=== PATIENT | female | born 2000 | race Caucasian/White ===

== ENCOUNTER 2020-07-25 09:43 | Emergency (ER) | payer OTHER, SELFPAY ==
--- NOTE | ~2020-07-25 | XR_ITS ---
XR foot LT min 3V DATE: 07/25/2020 10:23 INDICATION: Pain and swelling laterally. No known injury. TECHNIQUE: 4 views COMPARISON: None FINDINGS: No fracture, dislocation, periosteal reaction or bone destruction, erosive change or other significant bony or soft tissue abnormality is detected. IMPRESSION: Negative Reviewed, dictated and finalized at location A. [place] [employer]PARTMENT MANAGER IMPRESSION: Negative
[2020-07-25 09:45] VITALS: BP 144/74; PULSE 96; RESP 18; TEMP 36.1; O2SAT 100
--- NOTE | 2020-07-25 10:13 | ED.LOWEXIN ---
HPI - Extremity Injury (Lower) General Chief Complaint: Extremity Injury, Lower Stated Complaint: Left Foot Injury Time Seen by Provider: 07/25/20 09:56 Source: RN notes reviewed History of Present Illness HPI Narrative: Patient presents to emergency department from home for left foot pain. Patient states symptoms been going for the past 1 week states the pain began after she got home from work approximately a week ago the pain is located over the left lateral foot and is worse with standing on the foot she denies any known direct trauma or injury states that she has been taking ibuprofen for the pain with no relief denies any fevers or chills numbness or tingling or any other symptoms Related Data Allergies Allergy/AdvReac Type Severity Reaction Status Date / Time codeine AdvReac Swelling Verified 07/25/20 09:48 Review of Systems Review of Systems: Narrative: Gen.: Denies fevers or chills Musculoskeletal: See HPI Neuro: Denies numbness, tingling, weakness Skin: Denies rash Endo: Denies DM PMFSH Past Medical History Medical History (Updated 07/25/20 @ 10:56 by Waqas Celestin DO) Anemia Social History Social History (Updated 07/25/20 @ 10:13 by Waqas Celestin DO) Smoking status: Never smoker Exam Narrative: Exam Narrative: APPEARANCE: No acute distress, nontoxic, resting in bed Eyes: EOMI HEENT: Normocephalic, atraumatic, RESPIRATORY: No respiratory distress MUSCULOSKELETAl: Turn palpation over the left lateral foot at the base of the fifth metatarsal no swelling or ecchymosis near the foot is nontender no tenderness of the ankle dorsalis pedis pulse 2+ neurovascular intact NEURO: Awake and alert. Following commands, speech normal, no focal deficits SKIN:: Warm, dry. Normal Color no rash or lesions Course Course Emergency Course: Discussed with patient results of workup and diagnosis. Discussed need for follow-up with primary care, proper use of medication, and reasons to return to the emergency department. Patient understands and agrees to current treatment plan Vital Signs Vital signs: Vital Signs Temperature 97.0 F L 07/25/20 09:45 Pulse Rate 96 07/25/20 09:45 Respiratory Rate 18 07/25/20 09:45 Blood Pressure 144/74 H 07/25/20 09:45 Pulse Oximetry 100 07/25/20 09:45 Temperature 97.0 F L 02/22/21 09:45 Pulse Rate 96 07/25/20 09:45 Respiratory Rate 18 07/25/20 09:45 Blood Pressure 144/74 H 07/25/20 09:45 Pulse Oximetry 100 07/25/20 09:45 MDM - Extremity Injury (Lower) MDM Narrative Medical decision making narrative: Patient with tenderness with past 1 week at the base of the fifth metatarsal suspect possible stress fracture will place in postop shoe as x-ray showed no acute fracture with follow-up with podiatry Imaging Data Radiologist's impression: ITS Impressions Foot X-Ray 07/25/20 10:29 IMPRESSION: Negative Discharge Plan Discharge Clinical Impression: Acute pain of left foot Patient Disposition: Home, Self-Care Condition: Stable Instructions: Antibiotic Form, Ankle Strain (ED) Additional Instructions: Return for increasing pain numbness or tingling in extremities or any other symptoms of concern Prescriptions: New ibuprofen [IBU] 600 mg tablet 600 mg PO Q6H PRN (Reason: pain) Qty: 20 RF: 0 Follow-up/Referrals: Merrill Hoff JR, MD [Physician] - (Follow-up in 1 to 2 days for further podiatry treatment and evaluation) Jay,MD Jonathan [Primary Care Provider] - 1 Day Stand Alone Forms: Work/School Release IP Time of Disposition: 10:56
[2020-07-25 11:18] VITALS: BP 134/70; PULSE 67; RESP 12; O2SAT 99
== END 2020-07-25 11:20 | disposition home or self-care (01) ==
PROVIDERS: Emergency Provider Emergency Medicine; PCP Family Medicine
DX: M79.672 Pain in left foot (principal); Z86.2 Personal history of diseases of the blood and blood-forming organs and certain disorders involving the immune mechanism
CPT/HCPCS: 73630; 99283

== ENCOUNTER 2021-05-26 15:16 | Emergency (ER) | payer OTHER, SELFPAY ==
[2021-05-26 15:20] VITALS: BP 132/93; PULSE 88; RESP 20; TEMP 37.3; O2SAT 100
--- NOTE | 2021-05-26 15:33 | ED.SOB ---
HPI - SOB/Dyspnea General Chief Complaint: Upper Respiratory Infection Stated Complaint: fever,cough,sore throat, fatigue Time Seen by Provider: 05/26/21 15:33 Source: patient Mode of arrival: ambulatory Limitations: no limitations History of Present Illness HPI Narrative: Previously well 20-year-old woman comes in today complaining of cough, congestion, mild shortness of breath, body aches, headache, feeling feverish and having a sore throat. Her symptoms started 3 or 4 days ago. Her max temperature was 99? something. She has been exposed to somebody with COVID and had a home COVID test which was positive. MD elicited complaint: cough Onset (ago): day(s) (3) Timing: constant Severity: moderate Exacerbating factors: nothing Relieving factors: nothing Associated symptoms: fever and cough Treatment prior to arrival: none Related Data Home oxygen amount: none Allergies Allergy/AdvReac Type Severity Reaction Status Date / Time codeine Allergy Unknown Verified 05/26/21 15:54 Review of Systems Constitutional: Constitutional: Denies chills and Reports fever(s) ENT: Denies nasal congestion and Reports sore throat Cardiovascular: Cardiovascular: Denies chest pain and Denies radiating jaw, neck or arm pain Respiratory: Respiratory: Reports cough, Denies dyspnea and Denies wheezing Gastrointestinal: Gastrointestinal: Denies abdominal pain, Denies diarrhea, Denies nausea and Denies vomiting Integumentary/Breasts: Skin/Breast: Denies pruritus, Denies erythema and Denies rash Neurologic: Denies vertigo, Denies dizziness and Denies syncope Allergic/Immunologic: Allergic/Immunologic: Denies lip swelling and Denies throat swelling [facility] Social History Social History (Updated 05/26/21 @ 15:36 by Jonathan Mahajan MD) Smoking status: Never smoker Alcohol intake: never Substance use: never Living arrangements: with family Exam Const: General: healthy appearing, no acute distress and alert Orientation/consciousness: patient oriented x3 Limitations: no limitations HENMT: Ears: external ears normal, TM's normal bilaterally and EAC's normal General nose exam: Normal nares present Face and sinus: normal facial exam Mouth: Yes moist mucous membranes Throat: posterior oropharynx normal Eyes: Conjunctivae: conjunctivae normal Pupils: Equal, round and reactive pupils present EOM: EOMs intact bilaterally Resp: Effort & Inspection: normal respiratory effort and not labored Auscultation: clear to auscultation bilaterally, no rales, no rhonchi and no wheezes Cardio: Rate: regular rate Rhythm: regular rhythm Heart sounds: no murmurs Skin: General skin exam: normal color, no jaundice and no pallor Rashes: no rashes Neuro: General: patient oriented x3, moves all extremities, no focal motor deficits and CN's II-XI intact bilaterally Speech: normal speech Gait exam (Neuro): Normal gait present Extrem: General: normal to inspection and no clubbing, cyanosis or edema Psych: Mental Status: mental status grossly normal Affect: normal affect Attitude: cooperative Thought content: Yes Normal thought content present MDM - SOB/Dyspnea Lab Data Labs: Lab Results 05/26/21 05/26/21 Range/Units 15:40 15:43 Influenza A (RT-PCR) Positive (Negative) Influenza B (RT-PCR) Negative (Negative) SARS-CoV-2 RNA (RT-PCR) Negative (Negative) Grp A Beta Strep Ag Negative Discharge Plan Discharge Clinical Impression: Influenza A Patient Disposition: Home, Self-Care Condition: Stable Instructions: Influenza (ED) Additional Instructions: Drink plenty of fluids and rest. Tylenol or ibuprofen for fever and discomfort. If you develop chest pain, difficulty breathing, persistent vomiting or new concerning symptoms, return to the emergency department. Prescriptions: New oseltamivir 75 mg capsule 75 mg PO Q12H 5 Days Qty: 10 RF: 0 Follow-up/Referrals: UNKNOWN,DOCTOR [Primary Care Pr
[2021-05-26 16:21] LABS: Influenza A QL RT-PCR Positive (Negative); Influenza B QL RT-PCR Negative (Negative); SARS-CoV-2 RNA PCR Negative (Negative)
[2021-05-26 16:31] VITALS: BP 123/87; PULSE 87; RESP 20; TEMP 37.3; O2SAT 100
== END 2021-05-26 16:37 | disposition home or self-care (01) ==
PROVIDERS: Emergency Provider Emergency Medicine
DX: J11.1 Influenza due to unidentified influenza virus with other respiratory manifestations (principal); Z20.822 Contact with and (suspected) exposure to COVID-19
CPT/HCPCS: 87081; 87502; 87880; 99283; C9803; U0003; U0005